=== PATIENT | male | born 1990 | race African-American/Black ===

== ENCOUNTER 2017-06-25 21:10 | Emergency (ER) | payer MEDICAID ==
[~2017-06-25] VITALS: Ht 172.7 cm; Wt 86.2 kg
[2017-06-25] MEDS ORDERED: NKM (21:42)
[2017-06-25 21:50] VITALS: BP 114/73
[2017-06-25] MEDS ORDERED: Lidocaine 1% 10mg/ml/Epi 0.005mg/ml 30ml vial INJ ONE (22:15)
[2017-06-25] MEDS ORDERED: Tetanus/Diptheria/Pertussis Vaccine 0.5ml Syr IM ONE (22:30)
[2017-06-25] MEDS ORDERED: Betadine 4oz Bottle TOPIC ONE (23:45)
[2017-06-26] MEDS ORDERED: CEPHALEXIN500 MG ORAL (00:01)
[2017-06-26] MEDS ORDERED: BACITRACIN ZIN1 EACH TOPIC (00:01)
[2017-06-26] MEDS ORDERED: Bacitracin Oint UD TOPIC ONE (00:13)
[2017-06-26 00:24] VITALS: BP 114/73
--- NOTE | 2017-06-26 03:47 | Emergency Room Report ---
History of Present Illness General Chief Complaint: Laceration Source: Patient Present Illness HPI Patient is a 27-year-old male who presented after increased right hand pain and right hand laceration. The patient had injury just prior to arrival. Patient reports punching a mirror with his right hand. He denies any numbness or pulsatile bleeding. The patient reports having tetanus vaccine probably less than 10 years ago but unsure of the dates. Patient is right-hand dominant and is currently working as a security installer Allergies: Coded Allergies: No Known Allergies (Unverified , 06/25/17) Patient History Past Medical History: see triage record Reviewed Nursing Documentation: PMH: Agreed; PSxH: Agreed Nursing Documentation-PMH Past Medical History: No Stated History Review of Systems All Other Systems: negative except mentioned in HPI Physical Exam Vital Signs Date Time Temp Pulse Resp B/P (MAP) Pulse Ox O2 Delivery O2 Flow Rate FiO2 06/25/17 21:39 98.3 51 16 114/73 97 Room Air 98.2 General Appearance: well appearing, no apparent distress, alert, GCS 15 Head: normocephalic, atraumatic ENT: hearing grossly normal, normal voice Neck: full range of motion, supple Respiratory: no respiratory distress, speaking full sentences Gastrointestinal: normal inspection Musculoskeletal: no calf tenderness Neurologic: normal inspection, alert, oriented x3, responsive, automotive sales specialist III-XII nml as tested, normal gait Psychiatric: mood/affect normal Skin: laceration - lacerations to dorsum of 2nd 3rd and 4th finger with small amount of foreign material Procedures Laceration/Wound Repair Laceration/Wound Repair : Consent: Verbal Wound's Depth, Shape: superficial Wound Length (cm): 0 Wound Explored: foreign body removed Irrigated w/ Saline (ccs): 30 Betadine Prep?: Yes Anesthesia: Lidocaine w/ Epi Volume Anesthetic (ccs): 5 Wound Debrided: minimal Wound Repaired With: sutures Suture Size/Type: 5:0 Number of Sutures: 6 Layer Closure?: No Sterile Dressing Applied?: Yes Patient Tolerated: Well Complications: None Medical Decision Making Diagnostic Impression: Primary Impression: Laceration ER Course Patient presented for laceration. Differential diagnoses included foreign body , nerve injury, arterial injury among others.Because of complexity of patient's case imaging studies were ordered. Hand x-ray 3 views interpreted by me showed normal bony alignment without evident fracture. There is no definite foreign body noted. Foreign material was removed with irrigation. The patient's wound was closed and was noted to have no active bleeding at the time of closure. The patient is advised to have wound rechecked in 2-3 days. Patient is advised to return if any worsening condition or if any changes in status that are concerning. This report is dictated with [employer] qualitative field project manager software which may occasionally lead to discrepancies related to use of this software. Last Vital Signs Date Time Temp Pulse Resp B/P (MAP) Pulse Ox O2 Delivery O2 Flow Rate FiO2 06/26/17 00:24 98.2 16 114/73 97 Room Air 98.2 06/25/17 21:39 51 Status: improved Disposition: HOME, SELF-CARE Condition: Stable Scripts Bacitracin Zinc* (BACITRACIN ZINC*) 1 Each Packet 1 APPLIC TOPIC THREE TIMES A DAY, #30 PACKET Prov: Don Milligan 06/26/17 Cephalexin* (KEFLEX*) 500 Mg Capsule 500 MG ORAL EVERY 6 HOURS, #28 CAP Prov: Don Milligan 06/26/17 Referrals: [facility],REFERRING (PCP) Patient Instructions: Laceration Care, Adult Don Milligan June 26, 2017 03:47
== END 2017-06-26 00:22 | disposition home or self-care (01) ==
LOC: EMR 22:40
DX: S61.411A Laceration without foreign body of right hand, initial encounter (principal); Z23 Encounter for immunization; W25.XXXA Contact with sharp glass, initial encounter; Y92.9 Unspecified place or not applicable
CPT/HCPCS: 12001; 73130; 90471; 90715; 99284; Z7502; A4246